=== PATIENT | female | born 1960 | race Caucasian/White ===

== ENCOUNTER 2019-11-02 17:15 | Emergency (ER) | payer OTHER ==
[2019-11-02 17:33] VITALS: PULSE 79; TEMP 97.8; BMI 35.5
[2019-11-02] MEDS ORDERED: LIDOCAINE HCL 2% (50ML VIAL) DT ONE (18:08)
[2019-11-02] MEDS ORDERED: LIDOCAINE HCL 2% (20ML MULTI-DOSE VIAL) ONE (18:10)
[2019-11-02 19:22] VITALS: BP 138/68
== END 2019-11-02 20:13 | disposition home or self-care (01) ==
LOC: FER 17:15
PROC: 0RSKXZZ Reposition Left Shoulder Joint, External Approach (ICD-10-PCS; principal; 2019-11-02)
DX: S49.92XA Unspecified injury of left shoulder and upper arm, initial encounter (principal); S43.005A Unspecified dislocation of left shoulder joint, initial encounter
CPT/HCPCS: 73030-TC-LT-FY; 73060-TC-LT-FY; 99285-25

== ENCOUNTER 2024-10-27 14:06 | Emergency (ER) | payer OTHER ==
[2024-10-27 14:22] VITALS: BP 151/76; PULSE 78; RESP 19; TEMP 98.8; BMI 33.8
[2024-10-27] MEDS: IBUPROFEN 600 MG TABLET (FP) PO ONE (14:54)
[2024-10-27] MEDS ORDERED: IBUPROFEN 600 MG TABLET (FP) PO ONE (14:54)
== END 2024-10-27 15:57 | disposition home or self-care (01) ==
LOC: JERFT 14:06
PROC: 2W3RX1Z Immobilization of Left Lower Leg using Splint (ICD-10-PCS; principal; 2024-10-27)
DX: S82.392A Other fracture of lower end of left tibia, initial encounter for closed fracture (principal); S82.832A Other fracture of upper and lower end of left fibula, initial encounter for closed fracture; W01.0XXA Fall on same level from slipping, tripping and stumbling without subsequent striking against object, initial encounter
CPT/HCPCS: 73610-TC-LT-FY; 73630-TC-LT; 99283-25

== ENCOUNTER 2024-11-13 17:27 | Emergency (ER) | payer OTHER ==
[2024-11-13 17:34] VITALS: BP 156/63; PULSE 78; RESP 16; TEMP 98.9; BMI 34.0
[2024-11-13] MEDS ORDERED: IBUPROFEN 400 MG TABLET (FP) PO ONE (17:44)
[2024-11-13] MEDS: IBUPROFEN 400 MG TABLET (FP) PO ONE (17:45)
== END 2024-11-13 18:40 | disposition home or self-care (01) ==
LOC: FER 17:27
DX: M25.572 Pain in left ankle and joints of left foot (principal)
CPT/HCPCS: 99283-25